=== PATIENT | female | born 1940 | race Caucasian/White ===

== ENCOUNTER 2018-06-12 10:29 | Inpatient (IN) ==
[~2018-06-12 10:29] MED LIST: LIDOCAINE W/ SODIUM BICARB 0.5 ML SYR ONE; LIDOCAINE W/ SODIUM BICARB 0.5 ML SYR SUBD ONE; Lactated Ringers 1,000 ML PRIMARY IV ONE; Nasal Sanitizer POPSWAB ampule 3 AMP (Nozin) PREOP DOSE ENOS SCH; Sodium Chloride 0.9% 250 ML ONE; Vancomycin Inj 1gm vial ONE; ceFAZolin Inj 2gm (Premix) 2 GM/50 ML BAG IV ONE
[2018-06-12] MEDS ORDERED: IPRATROPIUM/ALBUTEROL SULFATE 3 ML NEB NEB ONE ×3 (11:29→18:44)
[2018-06-12] MEDS ORDERED: fentaNYL Inj 250 MCG/5 ML VIAL ONE ×2 (11:36→15:53)
[2018-06-12] MEDS ORDERED: PROPOFOL 10 MG/1 ML (200 MG/20 ML) VIAL IV ONE (11:36)
[2018-06-12] MEDS ORDERED: MIDAZOLAM 5 MG/1 ML ONE (11:36)
[2018-06-12] MEDS ORDERED: LIDOCAINE MPF 2% - 5 ML (20 MG/1 ML) ONE (11:36)
[2018-06-12] MEDS ORDERED: KETOROLAC 30 MG/1 ML VIAL ONE (11:37)
[2018-06-12] MEDS ORDERED: Acetaminophen 1000mg Inj 1,000 MG/100 ML VIAL IV ONE (11:37)
[2018-06-12] MEDS ORDERED: ROCURONIUM 10 MG/1 ML - 5 ML VIAL IVP ONE (11:40)
[2018-06-12] MEDS ORDERED: Sodium Chloride 0.9% vial 10 ML ONE ×2 (13:52→17:48)
[2018-06-12] MEDS ORDERED: BACITRACIN 50,000 UNIT VIAL IRRIG ONE ×3 (13:53→17:48)
[2018-06-12] MEDS ORDERED: BUPIVACAINE 0.25% W/ EPI - 10 ML VIAL ONE (13:53)
[2018-06-12] MEDS ORDERED: REMIFENTANIL 1 MG/1 ML IV ONE ×2 (14:59→17:14)
[2018-06-12] MEDS ORDERED: Sodium Chloride 0.9% vial 20 ML ONE ×2 (15:20→15:34)
[2018-06-12] MEDS ORDERED: Lactated Ringers 1,000 ML PRIMARY IV ONE ×2 (15:20→16:39)
[2018-06-12] MEDS ORDERED: Gentamicin Inj 40 MG/ML VIAL ONE (15:33)
[2018-06-12] MEDS ORDERED: ePHEDrine Inj 50 MG/ML AMP ONE (15:34)
[2018-06-12] MEDS ORDERED: Vancomycin Inj 1gm vial ONE (15:34)
[2018-06-12] MEDS ORDERED: BUPivacaine Inj 0.25% PF - 10ml vial ONE (18:06)
[2018-06-12] MEDS ORDERED: BUPivacaine Liposome/PF (Exparel) Inj 20ml vial INFIL ONE (18:06)
--- NOTE | 2018-06-12 18:41 | GEN.OPNOTE ---
Operative Note Surgery Date: 06/12/18 Preoperative Diagnosis: 1.) Right L3 radiculopathy with weakness. 2.) Free fragment disc extrusion in the right lateral recess rostral to the L3-4 disc space, impinging upon the right L3 nerve root Postoperative Diagnosis: 1.) Right L3 radiculopathy with weakness. 2.) Free fragment disc extrusion in the right lateral recess rostral to the L3-4 disc space, impinging upon the right L3 nerve root. 3.) Hypertrophied, calcified ligamentum flavum, L3-4 lateral recess impinging upon the lateral aspect of the thecal sac and forming right L4 nerve root. Procedure: 1.) Right L3-4 Microlumbar discectomy. (CPT code: 00883). 2.) Use o f the operative microscope for the microsurgical techniques used for the discectomy. (CPT code: 30585). 3.) Use of intra-operative fluoroscopy for localization of correct surgical level. 4.) Use of intra-operative neuromonitoring including EMG's and SSEP's. Surgeon: Arian Sparks MD Residential Roofer Helper: ALMA ROSA Schultz Anesthesia Provider: Michelle Patiño CRNA Anesthesia Type: General Estimated Blood Loss (mL): 50 Fluids: See anesthesia record Pathology: None Indications: Ms. Ortiz is a 77 year old woman referred by Dr. Waters. She has low back and right leg pain that started one month ago. She denies any injury at that time. After her symptoms started she in her bathroom making her pain her pain worse. She complained of weakness in the right leg and numbness in her right calf. She had an MRI scan of the lumbar spine that demonstrated multilevel advanced degenerative changes in the disc spaces and facets with prominent disc bulges throughout the lumbar spine. The study demonstrated a large disc extrusion in the right lateral recess rostral to the L3-4 disc space. We discussed the treatment option of proceeding with a right L3-4 microlumbar discectomy for durable relief of her symptoms. She wished to proceed with the surgical procedure. Findings: 1.) Large extruded disc fragment, right lateral recess rostral to the L3-4 disc space, dorsal (underneath) the exiting L3 nerve root. 2.) Markedly hypertrophied, calcified ligamentum flavum L3-4 lateral recess (caudal to the L3-4 disc space). Complications: Small durotomy in the axilla of the exiting right L3 nerve root. Operative Summary: Ms. Ortiz was met in the preoperative area. Her surgical history and physical was updated. The procedure to be performed was confirmed with Ms. Ortiz and this matched what was written on the patient's consent form. Any questions that she or her had were answered before she was taken back to the operating room suite. Mr. Ortiz was brought back to the operating room suite and put under general anesthesia and intubated by the anesthesia staff. She had a Scruggs catheter placed in her bladder for the procedure. She had pneumatic compression hose placed on her lower legs bilaterally. Ms. Ortiz was carefully rolled over onto the Rishi surgical table with her arms gently positioned upwards with her shoulders abducted less than 90. Her arms were well-padded with foam padding on top of the padding the surgical armboards. The region of her chest and axilla was checked bilaterally to make sure that there were no pressure points over the region of the brachial plexus bilaterally. Her breasts were checked be below the chest pad of the Rishi table no pressure points over the nipples. All bony prominences were well padded. Her Scruggs catheter was checked be free from kinks. The C-arm fluoroscopy unit was used to help localize the skin incision for the approach to the intended surgical level. The skin was marked with a skin marker with crosshatches. Ms. Ortiz was prepped and draped in the usual and standard fashion. She was given 2 g of Ancef and 1 g of vancomycin IV for perioperative antibiosis. The intended skin incision was injected subcutaneously with quarter percent Marcaine with 1 in 200,000 epinephrine. The skin was incised with a 10 blade scalpel and all dermal and superficial bleeding points were controlled with bipolar cautery. The dissection was continued through the subcutaneous tissue down to the lumbar fascia. The lumbar fascia was incised along the border the spinous processes on the rightand subperiosteal dissection was performed down the spinous processes and out over the lamina. When the inferior aspect of the lamina was identified a [place] 4 was placed underneath the lamina and the level was localized with lateral fluoroscopy. The intended L3-4 level on the right was localized. Subperiosteal dissection was continued until the majority the L3 and L4 lamina and the medial aspect of the L3-4 facet joint on the right were exposed. A Carter retractor was placed for self-retaining retraction. The operative microscope was brought into the surgical field and used for the microsurgical techniques used for the discectomy. The high-speed [employer] Jun drill with a matchstick bit was used to perform a hemilaminotomy and medial facetectomy. The up angled curette was then used to strip the insertion of the yellow ligament from underneath the remaining aspect of the L3 lamina. The plane between the yellow ligament and the dura was established using a nerve hook. The yellow ligament was completely removed in [place] and lateral recess exposing the right half of the thecal sac and the exiting L3 nerve root and the takeoff of the transversing L4 nerve root. Markedly thickened, calcified ligamentum flavum was encounted at the level of the disc space and below, medial to the L4 pedicle. This was producing significant mass effect upon the thecal sac as well as the transversing L4 nerve root. This was completely removed using Kerrison punches and an up angled curette, decompressing the thecal sac and the transversing nerve root. A Bridge[place] 4 instrument was used to carefully dissect the soft tissue adjacent to the takeoff of the L4 nerve root identifying the L3-4 disc space. There was a prominent subligamentous disc protrusion identified at the level of the disc space. Inspecting more rostrally the exiting L3 nerve root was elevated before entering it's neuroforamen. This was secondary to the large rostrally migrated disc fragment underneath the nerve root. The K[employer] nerve root retractor was used to gently retract the thecal sac. A nerve hook was carefully placed underneath the caudal aspect of the nerve root to puncture the thinned posterior longitudinal ligament, and extract some of the extruded disc material which was subsequently removed with a pituitary rongeur. Additional extruded disc materal was removed from the lateral recess, underneath the exiting L3 nerve root by gently sweeping this are repeatedly using a ball tip instrument with subsequent removal of the fragments with a pituitary rongeur. With the exiting L3 nerve root now relaxed, it was gently retracted with a [place] 4 exposing the bony pocket where the extruded disc fragment had been. No further disc material in this are was found. The L3-4 disc space proper was re-inspected, and although there was a prominent subligamentous disc bulge, it was felt that with the decompression of both the exiting L3 nerve root, the transversing L4 nerve root, and of the thecal sac in the lateral recess between the two, it was thought that Ms. Murillo's symptoms would likely be markedly improved and that disrupting the disc space and therefore the anterior column of the spine to remove disc material in the disc space proper, given Ms. Ortiz's advanced multilevel degenerative changes, would likely not provide significant increased reduction of her symptoms, and could result in bigger problems at this level by surgical disruption of both the posterior and anterior columns of the spine at this level. Therefore an intervertebral discectomy at this level was not performed. The surgical site was copiously irrigated with bacitracin irrigation. On last inspection of the surgical site, a small rent in dura of the axilla of the e xiting L3 nerve root was noted. The arachnoid was intact. An attempt at primary closure of the small rent with prolene suture was unsuccessful, but breached the arachnoid. The surgical site was again copiously irrigated with bacitracin irrigation. A strip of Duragen was placed surrounding the ventral, caudal, and dorsal aspect of the L3 nerve root in the root axilla, and this was sealed with Duroseal. This was then covered over with Floseal hemostatic agent which also filled the hemilaminotomy medial facetectomy site. A piece of compressed gelfoam was then placed covering over the hemilaminotomy/medial facetectomy site and then this was covered with more Floseal hemostatic agent. The closure portion of the procedure was begun. The fascia was closed tightly with #0 Vicryl suture in an interrupted fashion. The surgical site was again irrigated with bacitracin irrigation. The deep subcutaneous tissue and fascia was reapproximated with 2-0 Vicryl suture in an interrupted fashion. The dermis and superficial subcutaneous tissue was reapproximated with 3-0 Vicryl suture in an inverted interrupted fashion. The Ioban drape was pulled back from the edges of the skin incision and the final layer of closure was performed with stainless steel surgical rei. The incision was cleansed with a bacitracin soaked sponge and dried with sterile dry sponge. The incision was dressed with a covaderm dressing. All surgical drapes were removed from Ms. Ortiz. She was carefully rolled over onto the PACU stretcher. She was awoken and extubated by the anesthesia staff. She was taken to the recovery room in stable condition. All surgical counts were reported as correct by the scrub and circulating personnel. A physician's graduate research assistant, Ms. Shannan Hicks, assisted with the procedure including the exposure and closure portions of the procedure. She also provided irrigation and suctioning throughout the procedure.
[2018-06-12] MEDS ORDERED: ceFAZolin 1 GM VIAL ONE (18:42)
[2018-06-12] MEDS ORDERED: LABETALOL 20 MG/4 ML (5 MG/1 ML) SYRINGE ONE (18:46)
[2018-06-12] MEDS ORDERED: LIDOCAINE W/ SODIUM BICARB 0.5 ML SYR SUBD PRN ×2 (18:53)
[2018-06-12] MEDS ORDERED: ONDANSETRON 4 MG/2 ML VIAL IVP PRN ×2 (18:53→19:33)
[2018-06-12] MEDS ORDERED: fentaNYL Inj 100 MCG/2 ML VIAL IVP PRN (18:53)
--- NOTE | 2018-06-12 18:56 | CRNA.PROGR ---
Anesthesia Time - Procedure/Recovery Time Start Date: 06/12/18 Anesthesia : Time In: 14:45 Anesthesia : Time Out: 18:46 - Other Weight: 57.606 kg Height: 5 ft 7 in Body Mass Index (BMI): 19.8 Physical Status: P3 Anesthesia Type: General Anesthesia : ET (Anesthesia modifier, PRONE position)
--- NOTE | 2018-06-12 19:06 | NEURO.PROG ---
Subjective Post Op Day: 0 Pain Management: IV Scruggs Catheter: Yes Diet: Regular Ambulating: No Additional Details: Waking up in PACU. Following commands. Moving all extremities well. Good knee flexion/dorsiflexion/plantarflexion bilaterally. PLAN: 1.) To medical/surgical floor when ready. 2.) Flat in bed for 48 hours for durotomy. 3.) Continue post-operative antibiotics. 4.) Continue post-operative pain control. 5.) Advance diet. Objective : Data - Vital Signs Vital Signs and I&O: Vital Signs - Last Taken Temperature 96.2 F L 06/12/18 18:40 Pulse Rate 70 06/12/18 18:54 Respiratory Rate 20 06/12/18 18:54 Blood Pressure 165/87 06/12/18 18:40 Pulse Ox 100 06/12/18 18:54 Intake and Output (24hr x 4 totals) 06/10/18 06/11/18 06/12/18 06/13/18 05:59 05:59 05:59 05:59 Intake Total 2500 / 2500 Output Total 190 / 190 Balance 2310 / 2310
[2018-06-12] MEDS ORDERED: MORPHINE SULFATE 2 MG/1 ML IVP PRN (19:33)
[2018-06-12] MEDS ORDERED: Fleet Enema 133ml RECTAL PRN (19:33)
[2018-06-12] MEDS ORDERED: Vancomycin-PHA to Dose IV SCH (19:33)
[2018-06-12] MEDS ORDERED: MAGNESIUM 400 MG/5 ML - 30 ML (MILK OF MAGNESIA) PO PRN (19:33)
[2018-06-12] MEDS ORDERED: DIAZEPAM 10 MG/2 ML (5 MG/1 ML) CARPUJECT IVP PRN (19:33)
[2018-06-12] MEDS ORDERED: Metoclopramide Inj 10 MG/2 ML VIAL IVP PRN (19:33)
[2018-06-12] MEDS ORDERED: DOCUSATE 100 MG CAPSULE PO PRN (19:33)
[2018-06-12] MEDS ORDERED: Prochlorperazine Edisylate Inj 10mg/2ml vial IVP PRN (19:33)
[2018-06-12] MEDS ORDERED: PROMETHAZINE 25 MG/1 ML VIAL IM PRN (19:33)
[2018-06-12] MEDS ORDERED: HYDROcodone-APAP 5 MG -325 MG TABLET PO PRN (19:33)
[2018-06-12] MEDS ORDERED: Ondansetron ODT Tab 4 MG TAB PO PRN (19:33)
[2018-06-12] MEDS ORDERED: ALPRAZolam Tab 0.25 MG TABLET PO PRN (19:33)
[2018-06-12] MEDS ORDERED: MAGNESIUM CITRATE 296 ML SOLUTION PO PRN (19:33)
[2018-06-12] MEDS ORDERED: BISACODYL 5 MG TABLET PO PRN (19:33)
--- NOTE | 2018-06-12 20:08 | CONSULT ---
Consult Note - Consult Reason for Consult: PostOp Consulation : Neuro Primary Care Provider: Arian Ramirez - History of Present Illness History of Present Illness: Is a very nice 77-year-old female postop comes up to the floor after undergoing lower back surgery discectomy. Denies any chest pain nausea or vomiting in the room as well as nursing Past Medical History Medical History: Hypertension Tobacco Use: Current Every Day Smoker In the Past 12 Months, Have Used or Abuse Any of the Following Substance: None Review of Systems - Review of Systems All Systems: Reviewed & No Additional Complaints Except as Stated - Respiratory Respiratory: DENIES: Negative System Review, Cough, Sputum, Dyspnea At Rest, Dyspnea with Exertion, Pleuritic Pain, Hemoptysis, Wheezing, Other, See HPI - Cardiovascular Cardiovascular: DENIES: Negative System Review, Chest Pain, Edema, Syncope, Palpitations, Orthopnea, Paroxysmal Nocturnal Dyspnea, Other, See HPI Medication / Allergies Home Medications: Home Medications Medication Instructions Recorded Confirmed Type alprazolam 0.25 mg tablet 0.25 mg PO BID-TID PRN 06/08/18 06/11/18 History aspirin 81 mg tablet,delayed 81 mg PO QDAY 06/08/18 06/11/18 History release benazepril 40 mg tablet 40 mg PO QDAY 06/08/18 06/11/18 History cholecalciferol (vitamin D3) 1,000 1,000 unit PO QDAY 06/08/18 06/11/18 History unit capsule glycopyrrolate 9 mcg-formoterol 2 puff INH BID 06/08/18 06/12/18 History 4.8 mcg HFA aerosol inhaler hydrochlorothiazide 25 mg tablet 25 mg PO QDAY 06/08/18 06/11/18 History hydrocodone 5 mg-acetaminophen 325 1 tab PO QID PRN 06/08/18 06/12/18 History mg tablet levothyroxine 75 mcg capsule 75 mcg PO QDAY 06/08/18 06/12/18 History meloxicam 7.5 mg tablet 7.5 mg PO QDAY 06/08/18 06/11/18 History sertraline 100 mg tablet 100 mg PO QDAY 06/08/18 06/11/18 History simvastatin 40 mg tablet 40 mg PO QHS 06/08/18 06/11/18 History tramadol 50 mg tablet 50 mg PO Q4-6H PRN 06/08/18 06/11/18 History Allergies/Adverse Reactions: Allergies Allergy/AdvReac Type Severity Reaction Status Date / Time Sulfa (Sulfonamide Allergy Intermediate Anaphylaxis Verified 06/12/18 10:52 Antibiotics) Exam - Vitals Vital Signs: Vital Signs Temperature 97.5 F Temperature Source Temporal Artery Scan Pulse Rate [Pulse Oximeter] 62 Pulse Rate 72 Respiratory Rate 16 Blood Pressure [Right Arm] 150/85 Blood Pressure 142/80 Pulse Ox 97 Oxygen Flow Rate 1 Oxygen Delivery Method Nasal Cannula Height 5 ft 7 in Weight 127 lb - General General Appearance: No Acute Distress, Cooperative - Respiratory Respiratory Exam: POSITIVE: Clear to Auscultation - Bilaterally, Breathing Non Labored, Normal To Percussion, Normal to Percussion and Palpation - Cardiovascular Cardiovascular Exam: POSITIVE: RRR, No Murmur, No Clicks, No Gallops, No Rubs, PMI Non-Displaced - GI/Abdominal GI/Abdominal Exam: POSITIVE: Normal Bowel Sounds, Non Tender, Non Distended, Soft, No Masses, No Hepatomegaly, No Splenomegaly, No Organomegaly Assessment and Plan - Patient Problems (1) Anxiety Current Visit: No Status: Chronic Comment: Stable at present time Code(s): F41.9 - Anxiety disorder, unspecified (2) High blood pressure Current Visit: No Status: Chronic Comment: Continue current medications stable at present time Code(s): I10 - Essential (primary) hypertension (3) History of back surgery Current Visit: Yes Status: Acute Comment: Patient is postop deferred to neurosurgical team PT and OT Code(s): Z98.890 - Other specified postprocedural states
[2018-06-12] MEDS: Simvastatin Tab 40 MG TAB PO SCH (20:56)
[2018-06-12] MEDS: HYDROcodone-APAP 7.5 MG-325 MG TABLET PO PRN (21:05)
[2018-06-13] MEDS: ceFAZolin Inj 1 GM in Sodium Chloride 0.9% 100 ML IV SCH ×2 (03:35→13:11)
[2018-06-13] MEDS: LEVOTHYROXINE 75 MCG TABLET PO SCH (04:43)
[2018-06-13] MEDS: HYDROcodone-APAP 7.5 MG-325 MG TABLET PO PRN (04:43)
[2018-06-13 05:03] LABS: BASOPHILS # (AUTO) 0.04 10*3/UL; BASOPHILS % (AUTO) 0.3 % (0-1); EOSINOPHILS # (AUTO) 0.07 10*3/UL; EOSINOPHILS % (AUTO) 0.5 % (0-8); Hematocrit [HCT] 36.7 % (37.0-47.0); Hemoglobin [HGB] 11.6 g/dL (12.0-16.0); LYMPHOCYTES # (AUTO) 2.11 10*3/uL; MEAN CORPUSCULAR HEMOGLOBIN 29.4 PG (27-31); MEAN CORPUSCULAR HGB CONC 31.6 g/dL (33-37); MEAN CORPUSCULAR VOLUME 93.1 FL (81-99); MEAN PLATELET VOLUME 9.5 FL (7.4-12.2); MONOCYTES % (AUTO) 6.3 % (5-15); NEUTROPHILS # (AUTO) 11.22 10*3/UL; RED BLOOD COUNT 3.94 10^6/uL (4.20-5.40)
[2018-06-13 05:16] LABS: BLOOD UREA NITROGEN 26 mg/dL (7-22); BUN/CREATININE RATIO 21.66 (6-20)
[2018-06-13 05:56] LABS: WBC MORPHOLOGY COMMENT NORMAL MORPHOLOGY (NORM)
[2018-06-13 05:57] LABS: PLATELET MORPHOLOGY COMMENT NORMAL MORPHOLOGY (NORM); RBC MORPHOLOGY COMMENT NORMAL MORPHOLOGY (NORM)
[2018-06-13] MEDS: HYDROCHLOROTHIAZIDE 25 MG TABLET PO SCH (08:14)
[2018-06-13] MEDS: HYDROcodone-APAP 10 MG-325 MG TABLET PO PRN ×4 (08:14→20:20)
[2018-06-13] MEDS: BENAZEPRIL HCL 20 MG TABLET PO SCH (08:14)
[2018-06-13] MEDS: Sertraline Tab 50 MG TAB PO SCH (08:14)
[2018-06-13] MEDS: PANTOPRAZOLE 40 MG TABLET PO SCH (08:14)
--- NOTE | 2018-06-13 08:43 | NEURO.PROG ---
Subjective Post Op Day: 1 Pain Management: PO Scruggs Catheter: Yes Flatus: Yes Diet: Regular Ambulating: No Additional Details: Awake and alert. No complaint of headache. Surgical pain as expected. No pain, but some numbess in the right leg. Good knee flexion, dorsiflexion, planterflexion bilaterally. PLAN: 1.) Continue bedrest for durotomy. 2.) Nicotine patch, 21 mg. 3.) Continue post-operative pain control. Objective : Data - Labs CBC and BMP: 06/13/18 04:25 06/13/18 04:25 - Vital Signs Vital Signs and I&O: Vital Signs - Last Taken Temperature 97 F 06/13/18 08:22 Pulse Rate 84 06/13/18 08:22 Respiratory Rate 18 06/13/18 08:22 Blood Pressure 177/92 06/13/18 08:22 Pulse Ox 93 06/13/18 08:22 Intake and Output (24hr x 4 totals) 06/11/18 06/12/18 06/13/18 06/14/18 05:59 05:59 05:59 05:59 Intake Total 3482 / 3482 Output Total 1240 / 1240 Balance 2242 / 2242
[2018-06-13] MEDS ORDERED: Tetracaine Ophth Soln 0.5% 40 DRP/4 ML BOTTLE ONE (08:45)
[2018-06-13] MEDS ORDERED: Hypromellose/Glycerin/PEG 400 Ophth Soln 15 ML DROPS ONE (08:47)
[2018-06-13] MEDS ORDERED: Tetracaine Ophth Soln 0.5% 40 DRP/4 ML BOTTLE LEFT EYE ONE (09:00)
--- NOTE | 2018-06-13 09:06 | CRNA.PROGR ---
Anesthesia Note - Progress Notes Anesthesia Progress Note: Pt is in bed with breakfast, complaining of left eye pain, lid is red. I spoke with Dr. Sparks and Shannan Hicks. I gave her tetracaine eye gtts, and she had immediate relief. I ordered Tetracaine eye gtts and Artificial eye drops. I also communicated with Pollo Flowers as he will be director sanitation bureau tomorrow. DAPHNIE Nayak
[2018-06-13] MEDS: NICOTINE 21 MG /DAY PATCH TRANSDERM SCH (09:38)
[2018-06-13] MEDS ORDERED: ceFAZolin Inj 1 GM in Sodium Chloride 0.9% 100 ML IV ONE (12:00)
[2018-06-13] MEDS: Simvastatin Tab 40 MG TAB PO SCH (20:51)
[2018-06-13] MEDS ORDERED: HYDROcodone-APAP 10 MG-325 MG TABLET PO ONE (22:17)
[2018-06-14] MEDS: HYDROcodone-APAP 10 MG-325 MG TABLET PO PRN ×6 (00:11→20:46)
[2018-06-14 04:50] LABS: BASOPHILS # (AUTO) 0.05 10*3/UL; BASOPHILS % (AUTO) 0.4 % (0-1); EOSINOPHILS # (AUTO) 0.51 10*3/UL; EOSINOPHILS % (AUTO) 3.9 % (0-8); Hematocrit [HCT] 36.8 % (37.0-47.0); Hemoglobin [HGB] 11.6 g/dL (12.0-16.0); LYMPHOCYTES # (AUTO) 2.35 10*3/uL; MEAN CORPUSCULAR HEMOGLOBIN 29.8 PG (27-31); MEAN CORPUSCULAR HGB CONC 31.5 g/dL (33-37); MEAN CORPUSCULAR VOLUME 94.6 FL (81-99); MEAN PLATELET VOLUME 9.5 FL (7.4-12.2); MONOCYTES % (AUTO) 8.4 % (5-15); NEUTROPHILS # (AUTO) 9.09 10*3/UL; NEUTROPHILS % (AUTO) 69.2 % (50-80); RED BLOOD COUNT 3.89 10^6/uL (4.20-5.40)
[2018-06-14 04:52] LABS: PLATELET MORPHOLOGY COMMENT NORMAL MORPHOLOGY (NORM); RBC MORPHOLOGY COMMENT NORMAL MORPHOLOGY (NORM); WBC MORPHOLOGY COMMENT NORMAL MORPHOLOGY (NORM)
[2018-06-14 05:07] LABS: BLOOD UREA NITROGEN 18 mg/dL (7-22)
[2018-06-14] MEDS: LEVOTHYROXINE 75 MCG TABLET PO SCH (05:16)
[2018-06-14] MEDS: PANTOPRAZOLE 40 MG TABLET PO SCH (07:07)
--- NOTE | 2018-06-14 07:25 | NEURO.PROG ---
Subjective Post Op Day: 2 Pain Management: PO Scruggs Catheter: Yes Flatus: Yes Diet: Regular Ambulating: No Additional Details: Miriam is awake and alert. She has good strength bilateral dorsi and plantar flexion. She says the numbness and pain she had in her right leg before surgery is gone. Her incision is dry and intact. She continues at bedrest until this evening. She denies headache and states her surgical pain is in good control. She has good bowel sounds and states she is passing gas. She is on stool softeners. Her left eye which was red, puffy and irritated yesterday is much improved and she denies discomfort this morning. Plan to continue bedrest until this evening. Objective : Data - Labs CBC and BMP: 06/14/18 04:30 06/14/18 04:30 - Vital Signs Vital Signs and I&O: Vital Signs - Last Taken Temperature 98.4 F 06/14/18 04:11 Pulse Rate 70 06/14/18 04:11 Respiratory Rate 16 06/14/18 04:11 Blood Pressure 149/70 06/14/18 04:11 Pulse Ox 90 06/14/18 04:11 Intake and Output (24hr x 4 totals) 06/12/18 06/13/18 06/14/18 06/15/18 05:59 05:59 05:59 05:59 Intake Total 3482 / 3482 2605 / 2605 Output Total 1240 / 1240 2350 / 2350 Balance 2242 / 2242 255 / 255
[2018-06-14] MEDS: NICOTINE 21 MG /DAY PATCH TRANSDERM SCH (08:54)
[2018-06-14] MEDS: BENAZEPRIL HCL 20 MG TABLET PO SCH (08:54)
[2018-06-14] MEDS: Sertraline Tab 50 MG TAB PO SCH (08:54)
[2018-06-14] MEDS: HYDROCHLOROTHIAZIDE 25 MG TABLET PO SCH (08:54)
--- NOTE | 2018-06-14 10:02 | PDOC(PROG) ---
Interval History: Patient has no complaints from hospitalist standpoint she has no medical issues to address she continues to lay flat as per neurosurgery recommendations for dural tear Objective : Data - Labs CBC and BMP: 06/14/18 04:30 06/14/18 04:30 Objective : Exam - General General Appearance: Cooperative - Respiratory Respiratory Exam: Clear to Auscultation - Bilaterally, Breathing Non Labored, Normal To Percussion, Normal to Percussion and Palpation - Cardiovascular Cardiovascular Exam: RRR, No Murmur, No Clicks, No Gallops, No Rubs, PMI Non- Displaced - GI/Abdominal GI/Abdominal Exam: Normal Bowel Sounds, Non Tender, Non Distended, Soft, No Masses, No Hepatomegaly, No Splenomegaly, No Organomegaly Assessment and Plan - Patient Problems (1) Anxiety Current Visit: No Status: Chronic Comment: Stable Code(s): F41.9 - Anxiety disorder, unspecified (2) High blood pressure Current Visit: No Status: Chronic Comment: Stable Code(s): I10 - Essential (primary) hypertension (3) History of back surgery Current Visit: Yes Status: Acute Comment: Deferred to neurosurgery team for when patient can be discharged and follow-up instructions Code(s): Z98.890 - Other specified postprocedural states
--- NOTE | 2018-06-14 12:48 | NEURO.PROG ---
Subjective Post Op Day: 2 Additional Details: After speaking with Dr Sparks this morning, the plan is to have Miriam stay at bedrest until tomorrow AM, at which time she will have a bilateral venous duplex to rule out DVT before having her ambulate. I spoke with her about this and she agrees. Objective : Data - Labs CBC and BMP: 06/14/18 04:30 06/14/18 04:30 - Vital Signs Vital Signs and I&O: Vital Signs - Last Taken Temperature 98.5 F 06/14/18 07:35 Pulse Rate 74 06/14/18 07:35 Respiratory Rate 16 06/14/18 07:35 Blood Pressure 165/84 06/14/18 07:35 Pulse Ox 92 06/14/18 07:35 Intake and Output (24hr x 4 totals) 06/12/18 06/13/18 06/14/18 06/15/18 05:59 05:59 05:59 05:59 Intake Total 3482 / 3482 2605 / 2605 Output Total 1240 / 1240 2350 / 2350 Balance 2242 / 2242 255 / 255
[2018-06-14] MEDS: DIAZEPAM 5 MG TABLET PO PRN ×2 (16:32→22:34)
[2018-06-14 17:01] VITALS: O2SAT 92
[2018-06-14] MEDS: Simvastatin Tab 40 MG TAB PO SCH (20:47)
[2018-06-15] MEDS: HYDROcodone-APAP 10 MG-325 MG TABLET PO PRN ×3 (04:30→12:03)
[2018-06-15] MEDS: LEVOTHYROXINE 75 MCG TABLET PO SCH (04:30)
--- NOTE | 2018-06-15 07:15 | NEURO.PROG ---
Subjective Post Op Day: 3 Scruggs Catheter: Yes Flatus: Yes Diet: Regular Ambulating: No Additional Details: Miriam is awake and alert and has no complaints this morning. She denies headache. She is afebrile and her incision is dry, intact and without erythema. She is passing flatus but does not feel the need for a BM. LE venous ultrasound pending. Objective : Data - Labs CBC and BMP: 06/14/18 04:30 06/14/18 04:30 - Vital Signs Vital Signs and I&O: Vital Signs - Last Taken Temperature 97.8 F 06/15/18 04:39 Pulse Rate 83 06/15/18 04:39 Respiratory Rate 16 06/15/18 04:39 Blood Pressure 152/94 06/15/18 04:39 Pulse Ox 92 06/15/18 04:39 Intake and Output (24hr x 4 totals) 06/13/18 06/14/18 06/15/18 06/16/18 05:59 05:59 05:59 05:59 Intake Total 3482 / 3482 2605 / 2605 1472 / 1472 Output Total 1240 / 1240 2350 / 2350 3025 / 3025 Balance 2242 / 2242 255 / 255 -1553 / -1553
--- NOTE | 2018-06-15 07:54 | NEURO.PROG ---
Subjective Post Op Day: 3 Pain Management: PO Scruggs Catheter: No Flatus: Yes Diet: Regular Ambulating: Yes Additional Details: Awake and alert. Denies headache. Right leg "sore". Undergoing LE ultrasound/dopplers in room. Full knee flexion/dorsiflexion/plantarflexion bilaterally. PLAN: 1.) If LE ultrasound negative will start to get patient ambulating. 2.) If doing well once up and ambulating, will discharge to home. Objective : Data - Labs CBC and BMP: 06/14/18 04:30 06/14/18 04:30 - Vital Signs Vital Signs and I&O: Vital Signs - Last Taken Temperature 97.8 F 06/15/18 04:39 Pulse Rate 83 06/15/18 04:39 Respiratory Rate 16 06/15/18 04:39 Blood Pressure 152/94 06/15/18 04:39 Pulse Ox 92 06/15/18 04:39 Intake and Output (24hr x 4 totals) 06/13/18 06/14/18 06/15/18 06/16/18 05:59 05:59 05:59 05:59 Intake Total 3482 / 3482 2605 / 2605 1472 / 1472 Output Total 1240 / 1240 2350 / 2350 3025 / 3025 Balance 2242 / 2242 255 / 255 -1553 / -1553
--- NOTE | 2018-06-15 08:07 | NEURO.PROG ---
Subjective Additional Details: LE venous ultrasound was negative for DVT. Plan: Mobilize Discontinue robin catheter Home if tolerating activity and no headache. Objective : Data - Labs CBC and BMP: 06/14/18 04:30 06/14/18 04:30 - Vital Signs Vital Signs and I&O: Vital Signs - Last Taken Temperature 97.8 F 06/15/18 04:39 Pulse Rate 83 06/15/18 04:39 Respiratory Rate 16 06/15/18 04:39 Blood Pressure 152/94 06/15/18 04:39 Pulse Ox 92 06/15/18 04:39 Intake and Output (24hr x 4 totals) 06/13/18 06/14/18 06/15/18 06/16/18 05:59 05:59 05:59 05:59 Intake Total 3482 / 3482 2605 / 2605 1472 / 1472 Output Total 1240 / 1240 2350 / 2350 3025 / 3025 Balance 2242 / 2242 255 / 255 -1553 / -1553
[2018-06-15] MEDS: PANTOPRAZOLE 40 MG TABLET PO SCH (08:12)
[2018-06-15] MEDS: BENAZEPRIL HCL 20 MG TABLET PO SCH (08:13)
[2018-06-15] MEDS: HYDROCHLOROTHIAZIDE 25 MG TABLET PO SCH (08:13)
[2018-06-15] MEDS: NICOTINE 21 MG /DAY PATCH TRANSDERM SCH (08:14)
[2018-06-15] MEDS: Sertraline Tab 50 MG TAB PO SCH (08:19)
[2018-06-15 08:21] VITALS: BP 163/101; RESP 18; TEMP 98.4
[2018-06-15] MEDS: DIAZEPAM 5 MG TABLET PO PRN (09:04)
--- NOTE | 2018-06-15 11:30 | OPS CRUTCH ---
Diagnosis : Discectomy Referral Reason: Cybertech back brace. S: According to the nursing staff there was complications with the surgery and a dural sheath was nicked, requiring her to lay supine in bed for 24-hours before attempting to get up. Therefore, physical therapy is not to evaluate her until Friday morning. Nursing staff will attempt to get her up Friday night. O: Patient was issued a cybertech back brace. The therapist went in to give the patient verbal and visual education on donning and doffing as well as adjustment of the brace. P: No further therapy is indicated at this time. We will evaluate the patient on 06/15/18 in the AM. ASUNCION
--- NOTE | 2018-06-15 12:13 | DI ---
VENOUS DOPPLER ULTRASOUND OF BOTH LOWER EXTREMITIES, 06/15/2018 7:00 AM: Clinical History: Intraoperative dural tear requiring prolonged bed rest. Assessment for DVT before a mbulation. Previous Exam: None. Technique: 2D real-time imaging and color Doppler ultrasound with compression and augmentation maneuv ers. Deep Venous System: Normal deep venous system from groin to popliteal fossa bilaterally. Superficial Venous System: Normal greater saphenous vein bilaterally. Reading: Negative venous Doppler ultrasound of both lower extremities for deep vein thrombosis.
--- NOTE | 2018-06-16 09:20 | OTI REPORT ---
Thank you for the referral of Miriam Ortiz. She was seen on 06/15/18 for an occupational therapy inpatient evaluation status post laminectomy. SUBJECTIVE: The patient is a 77-year-old female who had a laminectomy; however, she had to stay in bed for 72 hours flat on her back after her surgery secondary to complications. This is her first time getting up out of bed. The patient lives in [place] with her and he will be able to help once she returns home. PAST MEDICAL HISTORY: Past medical history can be found in the patient's medical record. OBJECTIVE FINDINGS: Bed mobility: The patient was able to come from supine to sit with increased time and a lot of cues on how to log roll and sit in an upright position. The patient was very sore and was experiencing pain with sitting. Activities of daily living: We did go over how to dress self. The patient used a logistics and planning manager to doff socks and don lower extremity clothing. The patient had a lot of difficulty using the sock aide. We tried two different sock aides; however, the patient did not have enough upper extremity strength to pull the sock aide. The socks that she wears are very tight and she had difficulty getting her foot into the sock itself. Her reports he will assist her at home with this. The patient was issued a long handled bath sponge. She does have a higher toilet at home. They are going to get a shower chair from the [facility]. Transfers: The patient was able to come from sit to stand but had a lot of difficulty with this. The patient donned the back brace with min assist. Ambulation: The patient ambulated from the bed to the chair with mod assist. The patient's pain level increased to 7/10 with ambulation. ASSESSMENT: OT had to spend a lot of time with the patient today as she had a lot of difficulty getting out of bed. Once sitting she required increased time to process through the task of dressing. The patient was issued a logistics and planning manager as well as a long handled bath sponge. The patient reports she and her would like to get home to [place]. She could possibly benefit from another day as she is struggling to get around. She had increased difficulty with her transfers but required max assist for sit to stands. Short-Term Goals: To be met by discharge from inpatient: Patient will be able to dress self with modified independence. Patient will be able to complete functional transfers to bed and toilet with stand by assistance. Patient will be able to don brace independently. Patient will be able to complete a supine to sit transfer independently. Long-Term Goals: To be met following discharge from inpatient: Patient will demonstrate independence with all ADLs and use of adaptive devices to dress self. TREATMENT PLAN: Patient will be seen on a PRN basis until discharge. INITIAL TREATMENT: Treatment today consisted of the initial evaluation. The therapist was in the room for an hour and a half while the patient completed ADLs and functional transfers. It took the patient increased time to complete tasks secondary to her pain levels. ASUNCION
--- NOTE | 2018-06-16 09:53 | PTI REPORT ---
Thank you for the referral of Miriam Ortiz. She was seen on 06/15/18 for an inpatient evaluation status post lumbar laminectomy. SUBJECTIVE: The patient is a 77-year-old female. The patient reports her surgery was on Friday night; however, due to the dural sheath being nicked during surgery, she was unable to get up until after her ultrasound this morning which was negative. She states she is ready to get up; she is stiff and sore from laying in bed all weekend but is hoping to be discharged home. She states Dr. Sparks's PA came in and visited with her earlier this morning and she has been cleared by them, she only needs to get cleared by therapy. PAST MEDICAL HISTORY: Past medical history can be found in the patient's medical record. OBJECTIVE FINDINGS: General observations: The surgery site was unable to be inspected due to bandage. Pain: The patient reports a pain level currently of 3/10 on the verbal analog scale (0=no pain, 10=worst pain) but in the past hour received medication from the nurse. The patient's pain level did raise to 7/10 with prolonged walking. Bed mobility: The patient was able to perform bed mobility with modified independence, requiring increased time as well as verbal cues for proper log rolling. Activities of daily living: The patient was able to don and doff as well as adjust her back brace independently following visual and verbal education. Ambulation: The patient was issued a front wheeled walker and demonstrated the ability to ambulate up to 100 feet only. Stairs were not able to be attempted due to the patient's fatigue level. ASSESSMENT: Problem List: Decreased endurance Decreased ability to do stairs Physical Therapy Goals: To be met by discharge from inpatient: Patient will be able to ambulate up to 300 feet for community and household ambulation as well as ascend and descend three stairs in order to return home safely. TREATMENT PLAN: Patient will be seen on a PRN basis for achieving her goals. INITIAL TREATMENT: Treatment today consisted of the initial evaluation followed by issuing the patient a walker with wheels. The patient ambulated 100 feet. The patient transferred back to bed due to fatigue. The patient states she would like to try to walk before lunch again as well as do stairs so that she may be discharged home. ASUNCION
== END 2018-06-15 12:52 | disposition home or self-care (01) | DRG 519 ==
LOC: OR 10:29 → MED/SURG 10:29
PROVIDERS: ADMIT Neurological Surgery; ATTEND Neurological Surgery